=== PATIENT | male | born 1955 | race Caucasian/White ===

== ENCOUNTER 2018-05-05 01:17 | Inpatient (IN) | payer OTHER ==
[2018-05-05] MEDS ORDERED: SODIUM CHLORIDE 1,000 ML IV SCH (01:30)
[2018-05-05 01:35] LABS: HEMATOCRIT 35.9 % (35.4-49); HEMOGLOBIN 7.7 GM/dL (11.7-16.9); MCH 26.3 pg (25.7-33.7); MCHC 21.4 g/dl (32.0-35.9); MEAN CELL VOLUME 123.2 fl (80-96); MEAN PLT VOLUME 6.6 fl (7.5-11.1); PLATELET COUNT 130 K/MM3 (134-434); RBC 2.92 M/mm3 (4.00-5.60); RDW 16.4 % (11.9-15.9)
[2018-05-05] MEDS ORDERED: RAPID SEQUENCE INTUBATION KIT NR ONE (01:36)
[2018-05-05 01:46] LABS: INR 1.15 (0.82-1.09)
[2018-05-05] MEDS ORDERED: PROPOFOL 1,000,000 MCG/100 ML VIAL ONE ×2 (01:47→05:15)
--- NOTE | 2018-05-05 01:51 | PDOC ---
History of Present Illness <Jenaro Membreno - Last Filed: 05/05/18 02:25> - History of Present Illness Initial Comments: 05/05/18 01:55 "The patient is a 62 year old male, with a significant past medical history of anemia and ?lymphoma, who presents to the emergency department via EMS altered mental status. Per family, pt was in USOH at 12:20. Pt was noted to be awake, alert and with no deficits at this time. He then began to complain that he couldn't get comfortable. Suddenly, pt became rigid and began to slur his speech. Pt subsequently went unresponsive, and EMS was activated. As per EMS, the patient was incontinent and vomited upon their arrival. His blood glucose was 141. In ED, pt was exhibiting decerebrate posturing, unresponsive to painful stimuli. Pt with sonorous breath sounds, vomitus in airway. Pt intubated for airway protection with etomidate and cricket. CT obtained showing ICH. <Sanjiv Albarado - Last Filed: 05/05/18 03:44> - General Stated Complaint: CVA Time Seen by Provider: 05/05/18 01:21 Past History <Jenaro Membreno - Last Filed: 05/05/18 02:25> - Past Medical History COPD: No Other medical history: work up for lymphoma - Suicide/Smoking/Psychosocial Hx Smoking History: Unknown if ever smoked <Sanjiv Albarado - Last Filed: 05/05/18 03:44> - Past Medical History Allergies/Adverse Reactions: Allergies Allergy/AdvReac Type Severity Reaction Status Date / Time No Known Allergies Allergy Verified 05/05/18 02:09 Home Medications: Ambulatory Orders NK [No Known Home Medication] 05/05/18 Review of Systems - Review of Systems Able to Perform ROS?: No <Sanjiv Albarado - Last Filed: 05/05/18 03:44> *Physical Exam - Vital Signs Last Vital Signs Temp Pulse Resp BP Pulse Ox 97.5 F L 85 18 153/102 100 05/05/18 01:17 05/05/18 01:17 05/05/18 02:00 05/05/18 01:17 05/05/18 01:17 <Jenaro Membreno - Last Filed: 05/05/18 02:25> - Physical Exam Comments: 05/05/18 01:58 "GENERAL: Unresponsive HEAD: No signs of trauma EYES: PERRLA, sclera anicteric, conjunctiva clear ENT: Vomit in oropharynx NECK: no stepoffs, supple, no lymphadenopathy, JVD, or masses LUNGS: rhonchorous breath sounds HEART: Regular rate and rhythm, normal S1 and S2, no murmurs, rubs or gallops ABDOMEN: Soft, nondistended, No masses NEUROLOGICAL: + decerebrate posturing, no purposeful movement, no response to pain SKIN: Warm, Dry, normal turgor, no rashes or lesions noted. " <Sanjiv Albarado - Last Filed: 05/05/18 03:44> NIH Stroke Scale - Last Known Well Date/Time & Onset Date Last Known Well: 05/05/18 Time Last Known Well: 00:20 - Initial Evaluation Level of consciousness: Coma Ask patient the month and their age: Both incorrect Ask patient to open & close eyes; make fist and let go: Both incorrect Best gaze (horizontal eye movement): Forced deviation Visual field testing: Bilateral hemianopia (blind including cortical blindness) Facial paresis (Show teeth/raise eyebrows/close eyes tight): Complete paralysis of one or both sides (Upper and lower face) Motor Function: Left Arm: Untestable (Joint fused orlimb amputated), explain: Motor Function: Right Arm: Untestable (Joint fused or limb amputated), explain: Motor Function: Left Leg: Untestable (Joint fused or limb amputated), explain: Motor Function: Right Leg: Untestable )Joint fused orlimb amputated), explain: Limb Ataxia: Untestable (Joint fused or limb amputated), explain: Sensory(Use pinprick test arms,legs,trunk,face/side to side): Severe to total sensory loss Best language (Describe picture, name items, read sentences): Mute Dysarthria (read several words): Near unintelligible or unable to speak Extinction and Inattention: Profound austin-inattention or extinction to more than one modality - Total Score NIH Stroke Scale Score: 24 <Sanjiv Albarado - Last Filed: 05/05/18 03:44> Procedures - Intubation Time of Intubation: 01:45 Intubation Method: orotracheal Blade used: Glidescope Tube Size (Fr): 7.5 Medications: Etomidate, Rocuronium Tube position confirmed by: Direct visualization, CO2 detector, Chest x-ray, Breath sounds Breath Sounds after Intubation: equal Intubation Complications: no complications Post Intubation Xray: Yes <Sanjiv Albarado - Last Filed: 05/05/18 03:44> Critical Care Time/MDM Note Total Critical Care Time: 120 Critical Care Statement: The care of this patient involved high complexity decision making to prevent further life threatening deterioration of the patient 's condition and/or to evaluate & treat vital organ system(s) failure or risk of failure. - Medical Decision Making Note: 05/05/18 02:04 62 M with acute onset AMS. CT shows ICH. - Pt intubated for airway protection - HOB 30 degrees - Propofol gtt for sedation - Labetalol pushes PRN - Dr. Arriola neurosurgery consult 05/05/18 03:32 Dr. Arriola in ED to evaluate pt. Now discussing with pt's family recommendation for OR for drain placement. 05/05/18 03:40 Family consents to drain placement. Dr. Arriola to take pt to OR now. Pt to be admitted to ICU afterwards. 05/05/18 03:43 Pt admitted to hospitalist. <Sanjiv Albarado - Last Filed: 05/05/18 03:44> Discharge Disposition <Jenaro Membreno - Last Filed: 05/05/18 02:25> - Discharge Dispostion Decision to Admit order: Yes - Transfer to Acute Care Facility Transfer comment: 05/05/18 03:44 I, Dr. Sanjiv Albarado MD, attest that this document has been prepared under my direction and personally reviewed by me in its entirety. I further attest, that it accurately reflects all work, treatment, procedures and medical decision -making performed by me. <Sanjiv Albarado - Last Filed: 05/05/18 03:44> - Diagnosis ICH (intracerebral hemorrhage) - Referrals Referrals: Rosas Gu [Primary Care Provider] - - Patient Instructions - Post Discharge Activity Attestations - Attestations 05/05/18 02:25 Documentation prepared by Jenaro Membreno, acting as territory sales manager medical for Sanjiv Albarado MD. <Jenaro Membreno - Last Filed: 05/05/18 02:25>
[2018-05-05] MEDS ORDERED: ETOMIDATE 20 MG/10 ML AMPUL IVPUSH ONE (01:53)
[2018-05-05] MEDS ORDERED: ROCURONIUM BROMIDE 50 MG/5 ML VIAL IV ONE (01:53)
[2018-05-05 01:58] LABS: ALBUMIN 3.8 g/dl (3.4-5.0); ANION GAP 9 (8-16); BILIRUBIN,TOTAL 0.6 mg/dL (0.2-1.0); BLOOD UREA NITROGEN 20 mg/dL (7-18); CHLORIDE 104 mmol/L (98-107); CHOLESTEROL 152 mg/dL (50-200); CO2 25 mmol/L (21-32); CREATININE 0.9 mg/dL (0.7-1.3); GLUCOSE,RANDOM 122 mg/dL (74-106); POTASSIUM 4.4 mmol/L (3.5-5.1); SGOT/AST 44 U/L (15-37); SGPT/ALT 29 U/L (12-78); SODIUM 138 mmol/L (136-145); TRIGLYCERIDES 122 mg/dL (35-160)
[2018-05-05] MEDS ORDERED: PROPOFOL 1,000,000 MCG/100 ML VIAL IVPB SCH (02:00)
[2018-05-05 02:03] LABS: ALK PHOS 130 U/L (45-117); HDL CHOLESTEROL 24 mg/dL (40-60)
[2018-05-05] MEDS ORDERED: LABETALOL HCL 5 MG/1 ML (100MG/20 ML VIAL) IVPUSH ONE (02:22)
[2018-05-05] MEDS ORDERED: LABETALOL HCL 5 MG/1 ML (200MG/40ML VIAL) IVPB ONE (02:25)
[2018-05-05 02:39] LABS: ADD RBC MORPHOLOGY YES
[2018-05-05 03:41] LABS: ANISOCYTOSIS 1+
[2018-05-05] MEDS ORDERED: ceFAZolin SODIUM 1 GM VIAL ONE ×3 (04:02→19:01)
[2018-05-05] MEDS ORDERED: VANCOMYCIN 1,000 MG VIAL (RESTRICTED TO ID ONLY) ONE (04:02)
[2018-05-05] MEDS ORDERED: THROMBIN (BOVINE) 20,000 UNIT VIAL TP ONE ×2 (04:03→04:25)
[2018-05-05] MEDS ORDERED: VANCOMYCIN 1,000 MG VIAL (RESTRICTED TO ID ONLY) IVPB ONE (04:10)
[2018-05-05] MEDS ORDERED: ceFAZolin SODIUM 1 GM VIAL IVPB ONE (04:14)
[2018-05-05] MEDS ORDERED: PROPOFOL 1000 MG/100 ML VIAL IVPB ONE (05:20)
--- NOTE | 2018-05-05 05:25 | PROC ---
Procedure Note Procedure: Arterial Line Placement Indication: Hemodynamic monitoring Procedure: In OR, pt. under GA. Sterile prep with chlorhexidine to left wrist. Radial pulse palpated easily. #20 Arrow arterial line with attached glidewire. Catheter inserted easily via Seldinger technique, transduced with good waveform present on monitor. Dressing placed. No apparent complications.
[2018-05-05] MEDS ORDERED: PHENYLEPHRINE HCL 10 MG/1 ML SINGLE DOSE VIAL ONE ×2 (06:06→15:21)
[2018-05-05] MEDS ORDERED: LABETALOL HCL 5 MG/1 ML (100MG/20 ML VIAL) IVPUSH PRN (06:36)
--- NOTE | 2018-05-05 06:52 | HP ---
CHIEF COMPLAINT: Slurred speech, rigid posturing PCP: unknown Hx obtained from pt record; pt sedated and no family present at time for collateral; discussed case with Neurosurgeon, Dr. Castro HISTORY OF PRESENT ILLNESS: Pt is a 62 year old male, with a significant past medical history of anemia and ?lymphoma, who presents to the emergency department via EMS due to altered mental status. Per family, pt was in USOH at 12:20AM when he endorses abdominal discomfort and anxiety with inability to get comfortable. Pt received low dose xanax and was noted to suddenly experience slurring of speech, progressing to full body rigidity and unresponsiveness. EMS was activated by family and pt was taken to ED. Per EMS, patient was incontinent and vomited upon their arrival. His blood glucose was 141. Pt taken to OR by Dr. Modi for potential evacuation and surgical evaluation for hemostasis of ICH. Ventricular drain placed by Dr. Arriola. Pt draining freely SS fluids s/p drain placement, stable. Pt currently intubated, sedated with plan for CT scan to confirm placement with possible correction by neurosurgery. ER course was notable for: (1)Intubated for airway protection (2)CT head notable for ICH (3)WBC 399K Recent Travel: None PAST MEDICAL HISTORY: Leukemia (CML?) Anemia (unknown if chronic) PAST SURGICAL HISTORY: None Social History: Smoking: No Alcohol: No Drugs: No Family History: [place] Allergies No Known Allergies Allergy (Verified 05/05/18 02:09) HOME MEDICATIONS: Home Medications Medication Instructions Recorded NK [No Known Home Medication] 05/05/18 REVIEW OF SYSTEMS Unable to obtain, as pt sedated PHYSICAL EXAMINATION Vital Signs - 24 hr 05/05/18 05/05/18 05/05/18 01:17 02:00 02:53 Temperature 97.5 F L Pulse Rate 85 Pulse Rate [ 53 L Left Radial] Respiratory 12 18 18 Rate Blood Pressure 153/102 Blood Pressure 177/95 [Left Arm] O2 Sat by Pulse 100 100 Oximetry (%) GENERAL: Middle aged man, sedated, on vent HEAD: R intracranial drain noted on R lateral cranium, draining serosanguinous, proteinaceous fluid EYES: Pupils equal, round and reactive to light, sclera anicteric, conjunctiva clear. No lid lag. EARS, NOSE, THROAT: ETT in place, Ears normal, nares patent, oropharynx clear without exudates. Moist mucous membranes. NECK: Normal range of motion, supple without lymphadenopathy, JVD, or masses. LUNGS: Coarse breath sounds in upper airways. No wheezes, and no crackles. No accessory muscle use. HEART: Regular rate and rhythm, normal S1 and S2 without murmur, rub or gallop. ABDOMEN: Soft, nontender, not distended, normoactive bowel sounds, no guarding, no rebound, no masses. No hepatomegaly or splenomegaly. UPPER EXTREMITIES: 2+ pulses, warm, well-perfused. No cyanosis. No clubbing. No peripheral edema. LOWER EXTREMITIES: 2+ pulses, warm, well-perfused. No calf tenderness. No peripheral edema. NEUROLOGICAL: Limited due to sedation; no facial asymmetry; reactive pupils BL Laboratory Results - last 24 hr CBC, BMP 05/05/18 01:10 05/05/18 01:10 05/05/18 05/05/18 05/05/18 01:10 01:10 01:10 WBC > 398.9 H* RBC 2.92 L Hgb 7.7 L Hct 35.9 MCV 123.2 H MCH 26.3 MCHC 21.4 L RDW 16.4 H Plt Count 130 L MPV 6.6 L Absolute Neuts (auto) 169.7 Neutrophils % No Result Required. Lymphocytes % No Result Required. Nucleated RBC % 0 Hypochromia 1+ Anisocytosis 1+ PT with INR 13.00 INR 1.15 H Sodium 138 Potassium 4.4 Chloride 104 Carbon Dioxide 25 Anion Gap 9 BUN 20 H Creatinine 0.9 Creat Clearance w eGFR > 60 Random Glucose 122 H Calcium 9.0 Total Bilirubin 0.6 AST 44 H ALT 29 Alkaline Phosphatase 130 H Creatine Kinase 52 Troponin I < 0.02 Total Protein 7.0 Albumin 3.8 Triglycerides 122 Cholesterol 152 Total LDL Cholesterol 105 H HDL Cholesterol 24 L Blood Type Antibody Screen 05/05/18 01:10 WBC RBC Hgb Hct MCV MCH MCHC RDW Plt Count MPV Absolute Neuts (auto) Neutrophils % Lymphocytes % Nucleated RBC % Hypochromia Anisocytosis PT with INR INR Sodium Potassium Chloride Carbon Dioxide Anion Gap BUN Creatinine Creat Clearance w eGFR Random Glucose Calcium Total Bilirubin AST ALT Alkaline Phosphatase Creatine Kinase Troponin I Total Protein Albumin Triglycerides Cholesterol Total LDL Cholesterol HDL Cholesterol Blood Type A POSITIVE Antibody Screen Negative No micro CXR - S/p intubation; no pneumo appreciated CT Head - Gross evidence of ICH, likely originating from L caudate lobe ASSESSMENT/PLAN: 62 year old male, with a significant past medical history of anemia and ? leukemia, who presents to the emergency department via EMS due to altered mental status, now found to have a large ICH. Pt received drain placement by Dr. Arriola in OR emergently for evacuation of bleed and admitted to ICU. Will require continuous drainage, close monitoring of drain output and BP control, with eventual placement of LOSS PREVENTION REPRESENTATIVE shunt per Dr. Arriola (Neurosurgeon). #Acute ICH - pt POD0 s/p drain placement; currently on propofol gtt for sedation , freely draining SS fluid - Maintain IC drain with output collection q4h; Will require minimal manipulation, as very fragile and can dislodge/kink/clot off easily - Serial neuro exams qshift -NG tube placement for feeds - Propofol gtt for sedation; can taper progressively, however if pt agitated, maintain sedation level - Serial CBCs - Labetalol IV PRN for HTN; maintain BP <150 systolic - Neurosurgery following, Dr Arriola advising - Repeat CT head to confirm drain placement this AM - Heparin SQ for PPX - ICU monitoring - currently vented for O2 support; maintain currently - nutrition consult - Ancef q8h #Leukocytosis - WBC 399K; 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 Pickens - Will require continued outpt management - Obtain additional collateral from Oncologist #Hypotension - Pt hypotensive to 78/54 this AM - c/w neosyn gtt; titrate as needed - Cardiac monitoring - Vitals q1h for next 8 hours - monitor for further episodes - IVFs PPX HSQ FEN NS 42cc/hr Daily lytes No tube feeds for now; will require OG/NG tube and possible PEG Plan discussed with attending, Dr. Jameson Denney, PGY1 Visit type - Emergency Visit Emergency Visit: Yes ED Registration Date: 05/05/18 Care time: The patient presented to the Emergency Department on the above date and was hospitalized for further evaluation of their emergent condition. - New Patient This patient is new to me today: Yes Date on this admission: 05/05/18 - Critical Care Critical Care patient: No Hospitalist Screening - Colonoscopy Questionnaire Colonoscopy Questionnaire: Colonoscopy Questionnaire - Patient: 50 - 75 years old and never had a screening colonoscopy: Unknown History of colon or rectal polyps, or CA: Unknown History of IBD, Crohn's disease or UC: Unknown History of abdominal radiation therapy as a child: Unknown - Relative: 1 with colon or rectal CA, or polyps at age 60 or younger: Unknown Colon or rectal CA diagnosed at age 45 or younger: Unknown Multiple relatives with colon or rectal CA: Unknown - Outcome: Screening Result: Negative Screen
[2018-05-05] MEDS: PHENYLEPHRINE HCL 20,000 MCG in SODIUM CHLORIDE 248 ML IVPB SCH ×2 (07:00→15:33)
--- NOTE | 2018-05-05 07:07 | PN ---
Teaching Attending Note Name of Resident: Roberto Denney ATTENDING PHYSICIAN STATEMENT I saw and evaluated the patient. I reviewed the resident's note and discussed the case with the resident. I agree with the resident's findings and plan as documented. SUBJECTIVE: Patient is a 62 year old man with a significant past medical history of anemia and being evaluated for possible leukemia who presents to the emergency department via EMS altered mental status. Per family suddenly became rigid and began to slur his speech. Patient subsequently went unresponsive, and on arrival in the ER he was intubated. CT showed intracranial hemorrhage and he was take to the OR by neurosurgery and a drain placed. Patient is now in the ICU , ventilator dependent and sedated. OBJECTIVE: Ventilator dependent and sedated on propofol. Vital Signs Period Temp Pulse Resp BP Sys/Elmore Pulse Ox Last 24 Hr 97.5 F-99 F 53-86 12-19 81-177/56-102 99-100 HEENT: No Jaundice, eye redness or discharge, right side intracranial drain draining serosanguinous fluid. External ears are normal. No nasal discharge. Neck: Supple, nontender. No palpable adenopathy or thyromegaly. No JVD Chest: Good effort. Clear to auscultation and percussion. Heart: Regular. No S3, rub or murmur Abdomen: Not distended, soft, nontender and no HSM. No rebound or guarding. Normoactive bowel sounds. Ext: Peripheral pulses intact. No leg edema. Skin: Warm and dry. No petechiae, rash or ecchymosis. Neuro: Sedated on propofol and drain in place in right lateral cranium. Current Medications Generic Name Dose Route Start Last Admin Trade Name Edgarq PRN Reason Stop Dose Admin Chlorhexidine Gluconate 1 applic 05/05/18 22:00 Hibiclens For Decolonization - TP HS EDER Heparin Sodium (Porcine) 5,000 unit 05/05/18 06:45 Heparin - SQ TID EDER Sodium Chloride 1,000 mls @ 42 mls/hr 05/05/18 01:30 05/05/18 01:35 Normal Saline - IV 42 mls/hr ASDIR EDER Administration Propofol 1,000,000 mcg in 100 mls @ 2.041 mls/hr 05/05/18 02:00 05/05/18 01: 47 Diprivan - IVPB 5 mcg/kg/min TITR EDER 2.041 mls/hr Administration Protocol 5 MCG/KG/MIN Labetalol HCl 10 mg 05/05/18 06:36 Normodyne Injection - IVPUSH Q4H PRN HYPERTENSION Mupirocin 1 applic 05/05/18 10:00 Bactroban Ointment (For Decolonization) - NS 05/10/18 09:59 BID EDER Home Medications Medication Instructions Recorded NK [No Known Home Medication] 05/05/18 Abnormal Lab Results 05/05/18 05/05/18 05/05/18 01:10 01:10 01:10 WBC > 398.9 H* RBC 2.92 L Hgb 7.7 L MCV 123.2 H MCHC 21.4 L RDW 16.4 H Plt Count 130 L MPV 6.6 L INR 1.15 H BUN 20 H Random Glucose 122 H AST 44 H Alkaline Phosphatase 130 H Total LDL Cholesterol 105 H HDL Cholesterol 24 L ASSESSMENT AND PLAN: 1. Intracranial hemorrhage - Patient recovering from surgery for placement of intracranial drain. ICH likely a result of coagulopathy associated with possible leukemia. As per neurosurgery, SBP should be kept below 150 mmH with labetalol, a feeding tube will be placed, will monitor for EMPLOYMENT INTERVIEWER infection, and avoid any excessive patient movement to avoid dislodgment of the drain. A head CT scan is scheduled for 8 am to assess the position of the drain and will continue propofol for sedation. 2. Possible Leukemia - Will get oncology consult and get results of workup done so far at [facility]. 3. DVT prophylaxis - Heparin 5000u sq tid 4. Advance directives - Full code
[2018-05-05 07:12] VITALS: BMI 25.9
[2018-05-05 09:58] LABS: CHLORIDE 110 mmol/L (98-107); POTASSIUM 4.2 mmol/L (3.5-5.1); SGOT/AST 36 U/L (15-37); SGPT/ALT 30 U/L (12-78); SODIUM 144 mmol/L (136-145); TOT PROT 6.3 g/dl (6.4-8.2)
[2018-05-05] MEDS ORDERED: MUPIROCIN 2% TOPICAL OINTMENT FOR DECOLONIZATION NS SCH (10:00)
[2018-05-05 10:09] LABS: ALBUMIN 3.3 g/dl (3.4-5.0); ALK PHOS 111 U/L (45-117); ANION GAP 8 (8-16); BILIRUBIN,TOTAL 0.5 mg/dL (0.2-1.0); BLOOD UREA NITROGEN 18 mg/dL (7-18); CALCIUM 8.3 mg/dL (8.5-10.1); CO2 26 mmol/L (21-32); CREATININE 0.8 mg/dL (0.7-1.3); GLUCOSE,RANDOM 96 mg/dL (74-106); MAGNESIUM 2.6 mg/dL (1.8-2.4); PHOSPHOROUS 3.4 mg/dL (2.5-4.9); URIC ACID 8.7 mg/dL (2.6-7.2)
[2018-05-05 10:23] LABS: LDH 771 U/L (87-241)
--- NOTE | 2018-05-05 10:33 | EKG ---
Test Reason : Blood Pressure : / mmHG Vent. Rate : 079 BPM Atrial Rate : 079 BPM P-R Int : 176 ms QRS Dur : 084 ms QT Int : 394 ms P-R-T Axes : 071 061 065 degrees QTc Int : 451 ms POOR DATA QUALITY, INTERPRETATION MAY BE ADVERSELY AFFECTED NORMAL SINUS RHYTHM WITH SINUS ARRHYTHMIA NONSPECIFIC ST ABNORMALITY ABNORMAL ECG NO PREVIOUS ECGS AVAILABLE Confirmed by JESICA HENDRICKS, LUIS ([id number]) on 05/05/2018 10:33:47 AM Referred By: Confirmed By:LUIS MOONEY MD
[2018-05-05 10:35] LABS: INR 1.25 (0.82-1.09); PROTHROMBIN TIME (PATIENT) 14.1 SEC (9.7-13.0)
[2018-05-05 10:52] LABS: HEMATOCRIT 30.5 % (35.4-49); HEMOGLOBIN 7.1 GM/dL (11.7-16.9); MCH 27.1 pg (25.7-33.7); MCHC 23.3 g/dl (32.0-35.9); MEAN CELL VOLUME 116.5 fl (80-96); MEAN PLT VOLUME 11.7 fl (7.5-11.1); PLATELET COUNT 41 K/MM3 (134-434); RBC 2.61 M/mm3 (4.00-5.60); RDW 17.5 % (11.9-15.9)
[2018-05-05 10:55] LABS: ARTERIAL BLD GAS O2 SATURATION 90.3 % (90-98.9); ARTERIAL BLOOD GAS BASE EXCESS -0.2 meq/l (-2-2); ARTERIAL BLOOD GAS PCO2 40.5 mmHg (35-45); ARTERIAL BLOOD GAS pH 7.39 (7.35-7.45)
[2018-05-05] MEDS: HEPARIN NA (PORCINE) 5,000 UNITS/ML 1ML VIAL SQ SCH ×2 (10:57→15:41)
[2018-05-05 11:38] LABS: WHITE BLOOD COUNT 446.2 K/mm3 (4.0-10.0)
[2018-05-05 11:42] LABS: WHITE BLOOD COUNT 468.7 K/mm3 (4.0-10.0)
--- NOTE | 2018-05-05 11:57 | PN ---
Teaching Attending Note Name of Resident: Christiana Palumbo ATTENDING PHYSICIAN STATEMENT I saw and evaluated the patient. I reviewed the resident's note and discussed the case with the resident. I agree with the resident's findings and plan as documented. SUBJECTIVE: Pt seen and examined in the ICU. Briefly, 62 yo male with h/o anemia undergoing work up for possible leukemia as outpt who was brought in with altered mental status, slurred speech. CT head showing large intracranial hemorrhage taken emergently to the OR for ventricular drain placement. Seen post op in the ICU intubated on propofol gtt. Currently not breathing over vent with absent cranial reflexes. OBJECTIVE: Vital Signs Period Temp Pulse Resp BP Sys/Elmore Pulse Ox Last 24 Hr 97.5 F-99 F 53-86 12-21 78-177/54-102 99-100 Intake & Output 05/02/18 05/03/18 05/04/18 05/05/18 23:59 23:59 23:59 23:59 Intake Total 1000 Output Total 2464 Balance -1464 Weight 72.892 kg Gen: intubated, unresponsive Heart: RRR Lung: decreased breath sounds at the bases Abd: soft, nontender Ext: no edema Neuro: not breathing over vent, absent cranial reflexes CBC, BMP 05/05/18 08:50 05/05/18 08:50 Active Medications Chlorhexidine Gluconate (Hibiclens For Decolonization -) 1 applic TP HS EDER Heparin Sodium (Porcine) (Heparin -) 5,000 unit SQ TID EDER Last Admin: 05/05/18 10:57 Dose: 5,000 unit Sodium Chloride (Normal Saline -) 1,000 mls @ 42 mls/hr IV ASDIR EDER Last Admin: 05/05/18 01:35 Dose: 42 mls/hr Propofol (Diprivan -) 1,000,000 mcg in 100 mls @ 2.041 mls/hr IVPB TITR EDER; Protocol Last Titration: 05/05/18 07:00 Dose: 0 mcg/kg/min, 0 mls/hr Phenylephrine HCl 20,000 mcg/ (Sodium Chloride) 250 mls @ 75 mls/hr IVPB ASDIR EDER; Protocol Last Titration: 05/05/18 10:41 Dose: 25 mcg/min, 18.75 mls/hr Cefazolin Sodium (Ancef 1 Gm Premixed Ivpb -) 1 gm in 50 mls @ 100 mls/hr IVPB Q8H-IV EDER Labetalol HCl (Normodyne Injection -) 10 mg IVPUSH Q4H PRN PRN Reason: HYPERTENSION Mupirocin (Bactroban Ointment (For Decolonization) -) 1 applic NS BID EDER Stop: 05/10/18 09:59 Last Admin: 05/05/18 10:59 Dose: 1 applic ASSESSMENT AND PLAN: Intracranial Hemorrhage s/p ventricular drain placement Shock likely Neurogenic Likely Leukemia Anemia r/o Anoxic Encephalopathy r/o Diabetes Insipidus - check labs, urine osms, lytes - may need desmopressin - keep SBP <160 - monitor drain output - monitor H/H, WBC - heme/onc eval - titrate pressors - neuro checks - continue volume assist control - not a candidate for weaning at this time - DVT/GI prophylaxis - ICU monitoring - poor prognosis, discussed with family at bedside critical care time spent in reviewing chart, evaluating patient and formulating plan 35 min
[2018-05-05 12:42] LABS: ALLENS TEST POSITIVE
[2018-05-05] MEDS ORDERED: DEXTROSE 5%-WATER - 50 ML IVPB ONE ×2 (13:23→19:01)
[2018-05-05] MEDS: CEFAZOLIN 1 GM in DEXTROSE 5%-WATER - 50 ML IVPB SCH ×2 (13:24→19:02)
--- NOTE | 2018-05-05 13:54 | CONSULT ---
Consultation: REQUESTING PROVIDER: Dr. Juan CONSULT REQUEST: We have been asked to medically evaluate this patient for polyuria. HISTORY OF PRESENT ILLNESS: 62 year old male with recent diagnosis of Mantle cell lymphoma, BIBA after witnessed patient with slurred speech and subsequently unresponsive. In the ER head CT reveal ICH. neurosurgery consulted; patient s/p s/p ventricular drain placement. Called to evaluate patient for polyuria. After surgery urinary output of 2L. As per family, patient does not have any other medical history, except for recent mantle cell diagnosis. He takes aspirin 81mg daily and have been taking aleve 1 pill per day for the past week due to abdominal pain. REVIEW OF SYSTEMS: not attainable; intubated and sedated PHYSICAL EXAMINATION Vital Signs - 24 hr 05/05/18 05/05/18 05/05/18 01:17 02:00 02:53 Temperature 97.5 F L Pulse Rate 85 Pulse Rate [ 53 L Left Radial] Respiratory 12 18 18 Rate Blood Pressure 153/102 Blood Pressure 177/95 [Left Arm] O2 Sat by Pulse 100 100 Oximetry (%) 05/05/18 05/05/18 05/05/18 04:40 04:53 05:05 Temperature 99 F Pulse Rate 86 75 Pulse Rate [ Left Radial] Respiratory 18 18 19 Rate Blood Pressure 122/79 130/90 Blood Pressure [Left Arm] O2 Sat by Pulse 100 100 Oximetry (%) 05/05/18 05/05/18 05/05/18 05:20 05:35 05:50 Temperature Pulse Rate 75 74 74 Pulse Rate [ Left Radial] Respiratory 18 14 18 Rate Blood Pressure 137/87 110/75 90/64 Blood Pressure [Left Arm] O2 Sat by Pulse 100 100 100 Oximetry (%) 05/05/18 05/05/18 05/05/18 06:10 06:25 06:30 Temperature 99 F Pulse Rate 75 78 79 Pulse Rate [ Left Radial] Respiratory 16 19 18 Rate Blood Pressure 81/56 78/54 106/73 Blood Pressure [Left Arm] O2 Sat by Pulse 99 100 Oximetry (%) 05/05/18 05/05/18 05/05/18 06:45 07:00 07:20 Temperature 99 F Pulse Rate 78 78 Pulse Rate [ Left Radial] Respiratory 21 21 Rate Blood Pressure 134/86 138/76 Blood Pressure [Left Arm] O2 Sat by Pulse 100 Oximetry (%) 05/05/18 05/05/18 05/05/18 07:30 07:34 08:00 Temperature Pulse Rate 74 72 Pulse Rate [ Left Radial] Respiratory 20 18 18 Rate Blood Pressure 132/72 134/74 Blood Pressure [Left Arm] O2 Sat by Pulse 100 Oximetry (%) 05/05/18 05/05/18 05/05/18 09:00 09:12 10:00 Temperature Pulse Rate 78 75 78 Pulse Rate [ Left Radial] Respiratory 18 18 18 Rate Blood Pressure 124/74 143/78 Blood Pressure [Left Arm] O2 Sat by Pulse 100 Oximetry (%) 05/05/18 05/05/18 05/05/18 10:41 11:13 11:50 Temperature 98.5 F Pulse Rate 78 75 Pulse Rate [ Left Radial] Respiratory 18 Rate Blood Pressure 138/89 105/58 Blood Pressure [Left Arm] O2 Sat by Pulse 100 Oximetry (%) 05/05/18 05/05/18 05/05/18 12:00 12:22 13:00 Temperature Pulse Rate 74 75 Pulse Rate [ Left Radial] Respiratory 18 18 18 Rate Blood Pressure 108/76 113/77 Blood Pressure [Left Arm] O2 Sat by Pulse Oximetry (%) GENERAL: intubated and sedated LUNGS: Breath sounds equal, clear to auscultation bilaterally. No wheezes, and no crackles. No accessory muscle use. HEART: Regular rate and rhythm, normal S1 and S2 without murmur, rub or gallop. ABDOMEN: Soft, nontender, not distended, normoactive bowel sounds, no guarding, no rebound, no masses. No hepatomegaly or splenomegaly. NEUROLOGICAL: sedated Laboratory Results - last 24 hr 05/05/18 05/05/18 05/05/18 01:10 01:10 01:10 WBC 468.7 H* RBC 2.92 L Hgb 7.7 L Hct 35.9 MCV 123.2 H MCH 26.3 MCHC 21.4 L RDW 16.4 H Plt Count 130 L MPV 6.6 L Absolute Neuts (auto) 169.7 Neutrophils % No Result Required. Neutrophils % (Manual) No Result Required. Lymphocytes % No Result Required. Nucleated RBC % Eligibility Worker Differential Comment Hypochromia 1+ Platelet Comment Anisocytosis 1+ PT with INR 13.00 INR 1.15 H Puncture Site ABG pH ABG pCO2 at Pt Temp ABG pO2 at Pt Temp ABG HCO3 ABG O2 Sat (Measured) ABG O2 Content ABG Base Excess Eddie Test O2 Delivery Device Oxygen Flow Rate Vent Mode Vent Rate Mechanical Rate PEEP Pressure Support Vent Sodium 138 Potassium 4.4 Chloride 104 Carbon Dioxide 25 Anion Gap 9 BUN 20 H Creatinine 0.9 Creat Clearance w eGFR > 60 Random Glucose 122 H Lactic Acid Uric Acid Calcium 9.0 Phosphorus Magnesium Total Bilirubin 0.6 AST 44 H ALT 29 Alkaline Phosphatase 130 H LD Total Creatine Kinase 52 Troponin I < 0.02 Total Protein 7.0 Albumin 3.8 Triglycerides 122 Cholesterol 152 Total LDL Cholesterol 105 H HDL Cholesterol 24 L Urine Creatinine Blood Type Antibody Screen 05/05/18 05/05/18 05/05/18 01:10 08:50 08:50 WBC RBC Hgb Hct MCV MCH MCHC RDW Plt Count MPV Absolute Neuts (auto) Neutrophils % Neutrophils % (Manual) Lymphocytes % Nucleated RBC % Differential Comment Hypochromia Platelet Comment Anisocytosis PT with INR INR Puncture Site ABG pH ABG pCO2 at Pt Temp ABG pO2 at Pt Temp ABG HCO3 ABG O2 Sat (Measured) ABG O2 Content ABG Base Excess Eddie Test O2 Delivery Device Oxygen Flow Rate Vent Mode Vent Rate Mechanical Rate PEEP Pressure Support Vent Sodium 144 Potassium 4.2 Chloride 110 H Carbon Dioxide 26 Anion Gap 8 BUN 18 Creatinine 0.8 Creat Clearance w eGFR > 60 Random Glucose 96 D Lactic Acid 1.1 Uric Acid 8.7 H Calcium 8.3 L Phosphorus 3.4 Magnesium 2.6 H Total Bilirubin 0.5 AST 36 ALT 30 Alkaline Phosphatase 111 LD Total 771 H Creatine Kinase Troponin I Total Protein 6.3 L Albumin 3.3 L Triglycerides Cholesterol Total LDL Cholesterol HDL Cholesterol Urine Creatinine Blood Type A POSITIVE Antibody Screen Negative 05/05/18 05/05/18 05/05/18 08:50 08:50 10:00 WBC 446.2 H* RBC 2.61 L Hgb 7.1 L Hct 30.5 L D MCV 116.5 H MCH 27.1 MCHC 23.3 L RDW 17.5 H Plt Count 41 L D MPV 11.7 H D Absolute Neuts (auto) Neutrophils % No Result Required. Neutrophils % (Manual) Lymphocytes % No Result Required. Nucleated RBC % Differential Comment Hypochromia Platelet Comment No clumping noted Anisocytosis PT with INR 14.10 H INR 1.25 H Puncture Site ABG pH ABG pCO2 at Pt Temp ABG pO2 at Pt Temp ABG HCO3 ABG O2 Sat (Measured) ABG O2 Content ABG Base Excess Eddie Test O2 Delivery Device Oxygen Flow Rate Vent Mode Vent Rate Mechanical Rate PEEP Pressure Support Vent Sodium Potassium Chloride Carbon Dioxide Anion Gap BUN Creatinine Creat Clearance w eGFR Random Glucose Lactic Acid Uric Acid Cancelled Calcium Phosphorus Magnesium Total Bilirubin AST ALT Alkaline Phosphatase LD Total Cancelled Creatine Kinase Troponin I Total Protein Albumin Triglycerides Cholesterol Total LDL Cholesterol HDL Cholesterol Urine Creatinine Blood Type Antibody Screen 05/05/18 05/05/18 10:48 11:30 WBC RBC Hgb Hct MCV MCH MCHC RDW Plt Count MPV Absolute Neuts (auto) Neutrophils % Neutrophils % (Manual) Lymphocytes % Nucleated RBC % Differential Comment Hypochromia Platelet Comment Anisocytosis PT with INR INR Puncture Site Arterial line ABG pH 7.39 ABG pCO2 at Pt Temp 40.5 ABG pO2 at Pt Temp 60.0 L ABG HCO3 24.1 ABG O2 Sat (Measured) 90.3 ABG O2 Content 8.6 L* ABG Base Excess -0.2 Eddie Test Positive O2 Delivery Device Vent Oxygen Flow Rate 60% Vent Mode A/c Vent Rate 18 Mechanical Rate Yes PEEP 5.0 Pressure Support Vent 450 Sodium Potassium Chloride Carbon Dioxide Anion Gap BUN Creatinine Creat Clearance w eGFR Random Glucose Lactic Acid Uric Acid Calcium Phosphorus Magnesium Total Bilirubin AST ALT Alkaline Phosphatase LD Total Creatine Kinase Troponin I Total Protein Albumin Triglycerides Cholesterol Total LDL Cholesterol HDL Cholesterol Urine Creatinine 9.9 L Blood Type Antibody Screen Active Medications Generic Name Dose Route Start Last Admin Trade Name Freq PRN Reason Stop Dose Admin Chlorhexidine Gluconate 1 applic 05/05/18 22:00 Hibiclens For Decolonization - TP HS EDER Heparin Sodium (Porcine) 5,000 unit 05/05/18 06:45 05/05/18 10:57 Heparin - SQ 5,000 unit TID EDER Administration Sodium Chloride 1,000 mls @ 42 mls/hr 05/05/18 01:30 05/05/18 01:35 Normal Saline - IV 42 mls/hr ASDIR EDER Administration Propofol 1,000,000 mcg in 100 mls @ 2.041 mls/hr 05/05/18 02:00 05/05/18 07: 00 Diprivan - IVPB 0 mcg/kg/min TITR EDER 0 mls/hr Titration Protocol 5 MCG/KG/MIN Phenylephrine HCl 20,000 mcg/ 250 mls @ 75 mls/hr 05/05/18 08:00 05/05/18 10: 41 Sodium Chloride IVPB 25 mcg/min ASDIR DEER 18.75 mls/hr Titration Protocol 100 MCG/MIN Cefazolin Sodium 1 gm/ 50 mls @ 100 mls/hr 05/05/18 12:00 05/05/18 13:24 Dextrose IVPB 100 mls/hr Q8H-IV EDER Administration Labetalol HCl 10 mg 05/05/18 06:36 Normodyne Injection - IVPUSH Q4H PRN HYPERTENSION Mupirocin 1 applic 05/05/18 10:00 05/05/18 10:59 Bactroban Ointment (For Decolonization) - NS 05/10/18 09:59 1 applic BID EDER Administration ASSESSMENT/PLAN: 62 year old male with recent diagnosis of mantle cell lymphoma, admitted for ICH now s/p ventricular drain placement was became polyurica after procedure. -Polyuria -Intracranial Hemorrhage s/p ventricular drain placement -Anemia -mantle cell lymphoma -shock #polyuria; r/o diabetes insipidus: -monitor urine out put for >3L per day -check urine and serum osmols -monitor for hypernatremia with urine osmols > plasma osmols -IVF; 1/2 NS ; -consider ddavp if becomes hypernatremic Dispo: We will continue to follow the patient. Thank you for this consultative opportunity. Problem List - Problems (1) Polyuria Code(s): R35.8 - OTHER POLYURIA Visit type - Emergency Visit Emergency Visit: Yes ED Registration Date: 05/05/18 Care time: The patient presented to the Emergency Department on the above date and was hospitalized for further evaluation of their emergent condition. - New Patient This patient is new to me today: Yes Date on this admission: 05/05/18 - Critical Care Critical Care patient: Yes Total Critical Care Time (in minutes): 45 Critical Care Statement: The care of this patient involved high complexity decision making to prevent further life threatening deterioration of the patient 's condition and/or to evaluate & treat vital organ system(s) failure or risk of failure.
--- NOTE | 2018-05-05 13:59 | CONSULT ---
Consult - text type - Consultation Consultation Note: NEUROSURGERY CONSULTATION Lewis Greco is a 62 year old male who was in his usual state of good health until 3 weeks ago when he noted abdominal pain. Evaluation by his PCP resulted in diagnosis of splenomegally. Evaluation with basic labs resulted in identification of WBC of 300,000. Patient undergoing evaluation by Oncologist at [facility] for Leukemia/Lymphoma and was due to visit his Oncologist today for results of recent testing. At approximately 0030 this morning, the patient was trying to get comfortable in bed and complained to his about his abdomen. He suddenly became stiff and unresponsive and EMS was summoned. Patient vomited and was brought to [facility] ER. The patient was decerebrate posturing and was intubated and sedated. His systolic blood pressure was 170 and he was given Labetolol. CT Head reveals a 3 cm Intracerebral Hemorrhage in the region of the head of the Left Caudate nucleus and this ruptured into the Left frontal horn and there is quadriventricular IVH. A small amount of prepontine blood is noted with no obvious subarachnoid hemorrhage. Although this likely was a hemorrhage secondary to coagulopathy secondary to his Lymphoma/Leukemia, the possibilty of ruptured aneursym (? Basilar Lajas) was a concern. Prior to placing an external ventricular drain to address his hydrocephalus, we obtained a CTA which was preliminarily read as negative for aneurysm. I had a long discussion with the family regarding the nature of the ICH/IVH and associated hydrocephalus. I explained the risks, benefits and alternatives to Right frontal external ventricular drainage in great detail. I described the risks including, but not being limited to: , coma, paralysis, bleeding, infection, obstruction of the tubing and failure to relieve the hydrocephalus or stop the bleeding. I explained that external ventricular drainage would allow relief of pressure and removal of blood breakdown products. I described that we do not know what injury his brain may have suffered already, but the time from initial onset to evaluation in the ER was quite short and since he had preserved morton white distinction and no clear devastating and permanent brain injury, EVD would be the next logical step in his care. I explained that he did not appear to be coagulopathic in terms of hematomata at the blood draw site and lack of bruising with relatively normal clotting profile, however, since he had such a hemorrhage, abnormal bleeding remains a concern and potential challenge to surgery. I explained that there is a risk of infection as well and also described the need to reposition a suboptimally placed catheter or one that clots off. I explained that prolonged CSF diversion may require placement of a Ventriculoperitoneal shunt or new EVD if blood hasn't cleared in 1-2 weeks. All questions were answered. Informed consent was obtained. I offered them the option of seeking another opinion or another surgeon. Indeed, I had a layla discussion with them concerning the relative merits of transfer to a higher level of care and offered to facilitate in any way possible if the family so chose. After giving them time to confer privately , they asked that I proceed with surgery as described. The EVD was placed uneventfully and the patient was brought to the ICU. When he was noted to have fixed and dilated pupils several hours later, repeat Head CT was obtained which showed that the ICH was the same size and the catheter lay within the Right frontal horn. I discussed the serious nature of the patient's condition with the family in detail and again offered support in transferring him to a higher level of care if desired. At the current time the plan is: Blood pressure contol Follow Neuro Exam GI/DVT prophylaxis HOB 30 degrees Drain EVD at 10cm above pinna and record output Q4 hours (demonstrated to nursing and residents) Oncology Consult Will consider nutrition needs Ancef prophylaxis Will follow with ICU team
--- NOTE | 2018-05-05 14:03 | HOSP ---
Subjective - Review of Symptoms Subjective: pt seen and examined in icu. pt sedated and intubated. family at bedside Physical Examination Vital Signs: Vital Signs Temperature 98.5 F 05/05/18 11:13 Pulse Rate 75 05/05/18 13:00 Respiratory Rate 18 05/05/18 13:00 Blood Pressure 113/77 05/05/18 13:00 O2 Sat by Pulse Oximetry (%) 100 05/05/18 11:50 Findings/Remarks: PE Neuro: absent crainal reflex, fixed dilated pupils, absent gag reflex, shunt in place + drainage Pulm: intubated, clear no secretions CV: s1 s2 rrr Abd: s nt nd Ext: no le edema Labs: CBC, BMP 05/05/18 08:50 05/05/18 08:50 Hospitalist Encounter Assessment: Assessment: 62 year old male with pmhx of anemia and current work up for possible leukemia presented via ems for AMS and unresponsiveness. In ED was intubated and found to have ICH, taken to OR for shut placement now in ICU. Plan: 1. ICH s/p ventricular drain placement, anoxic encephalopathy - Possible due to leukemia? vs anemia - Maintain drain, monitor outpt per neuro surgery - keep intubated, volume assist control - SBP goal <150 - Consider NGT 2. Thrombocytopenia d/t lymphoma vs leukemia - r/o DIC - Transfuse 2u packed cells and 3uplatelets, additional platelets being sent from outside center - Will eventually need transfer to [place], will need neurosurgery clearance - d/w hematology 3. r/o DI - Urine studies sent - Nephrology aware - May need desmopressin 4. DVT - Heparin per neurosurgery Dispo: - Prognosis guarded, family at beside
--- NOTE | 2018-05-05 14:03 | PN ---
Physical Exam: SUBJECTIVE: Patient seen and examined OBJECTIVE: Vital Signs Period Temp Pulse Resp BP Sys/Elmore Pulse Ox Last 24 Hr 97.5 F-99 F 53-86 12-21 78-177/54-102 98-100 GENERAL: The patient is awake, alert, and fully oriented, in no acute distress. HEAD: Normal with no signs of trauma. EYES: PERRL, extraocular movements intact, sclera anicteric, conjunctiva clear. No ptosis. ENT: Ears normal, nares patent, oropharynx clear without exudates, moist mucous membranes. NECK: Trachea midline, full range of motion, supple. LUNGS: Breath sounds equal, clear to auscultation bilaterally, no wheezes, no crackles, no accessory muscle use. HEART: Regular rate and rhythm, S1, S2 without murmur, rub or gallop. ABDOMEN: Soft, nontender, nondistended, normoactive bowel sounds, no guarding, no rebound, no hepatosplenomegaly, no masses. EXTREMITIES: 2+ pulses, warm, well-perfused, no edema. NEUROLOGICAL: Cranial nerves II through XII grossly intact. Normal speech, gait not observed. PSYCH: Normal mood, normal affect. SKIN: Warm, dry, normal turgor, no rashes or lesions noted Laboratory Results - last 24 hr 05/05/18 05/05/18 05/05/18 01:10 01:10 01:10 WBC 468.7 H* RBC 2.92 L Hgb 7.7 L Hct 35.9 MCV 123.2 H MCH 26.3 MCHC 21.4 L RDW 16.4 H Plt Count 130 L MPV 6.6 L Absolute Neuts (auto) 169.7 Neutrophils % No Result Required. Neutrophils % (Manual) No Result Required. Lymphocytes % No Result Required. Nucleated RBC % Sole Tier Differential Comment Hypochromia 1+ Platelet Comment Anisocytosis 1+ PT with INR 13.00 INR 1.15 H Puncture Site ABG pH ABG pCO2 at Pt Temp ABG pO2 at Pt Temp ABG HCO3 ABG O2 Sat (Measured) ABG O2 Content ABG Base Excess Eddie Test O2 Delivery Device Oxygen Flow Rate Vent Mode Vent Rate Mechanical Rate PEEP Pressure Support Vent Sodium 138 Potassium 4.4 Chloride 104 Carbon Dioxide 25 Anion Gap 9 BUN 20 H Creatinine 0.9 Creat Clearance w eGFR > 60 Random Glucose 122 H Lactic Acid Uric Acid Calcium 9.0 Phosphorus Magnesium Total Bilirubin 0.6 AST 44 H ALT 29 Alkaline Phosphatase 130 H LD Total Creatine Kinase 52 Troponin I < 0.02 Total Protein 7.0 Albumin 3.8 Triglycerides 122 Cholesterol 152 Total LDL Cholesterol 105 H HDL Cholesterol 24 L Urine Creatinine Blood Type Antibody Screen 05/05/18 05/05/18 05/05/18 01:10 08:50 08:50 WBC RBC Hgb Hct MCV MCH MCHC RDW Plt Count MPV Absolute Neuts (auto) Neutrophils % Neutrophils % (Manual) Lymphocytes % Nucleated RBC % Differential Comment Hypochromia Platelet Comment Anisocytosis PT with INR INR Puncture Site ABG pH ABG pCO2 at Pt Temp ABG pO2 at Pt Temp ABG HCO3 ABG O2 Sat (Measured) ABG O2 Content ABG Base Excess Eddie Test O2 Delivery Device Oxygen Flow Rate Vent Mode Vent Rate Mechanical Rate PEEP Pressure Support Vent Sodium 144 Potassium 4.2 Chloride 110 H Carbon Dioxide 26 Anion Gap 8 BUN 18 Creatinine 0.8 Creat Clearance w eGFR > 60 Random Glucose 96 D Lactic Acid 1.1 Uric Acid 8.7 H Calcium 8.3 L Phosphorus 3.4 Magnesium 2.6 H Total Bilirubin 0.5 AST 36 ALT 30 Alkaline Phosphatase 111 LD Total 771 H Creatine Kinase Troponin I Total Protein 6.3 L Albumin 3.3 L Triglycerides Cholesterol Total LDL Cholesterol HDL Cholesterol Urine Creatinine Blood Type A POSITIVE Antibody Screen Negative 05/05/18 05/05/18 05/05/18 08:50 08:50 10:00 WBC 446.2 H* RBC 2.61 L Hgb 7.1 L Hct 30.5 L D MCV 116.5 H MCH 27.1 MCHC 23.3 L RDW 17.5 H Plt Count 41 L D MPV 11.7 H D Absolute Neuts (auto) Neutrophils % No Result Required. Neutrophils % (Manual) Lymphocytes % No Result Required. Nucleated RBC % Differential Comment Hypochromia Platelet Comment No clumping noted Anisocytosis PT with INR 14.10 H INR 1.25 H Puncture Site ABG pH ABG pCO2 at Pt Temp ABG pO2 at Pt Temp ABG HCO3 ABG O2 Sat (Measured) ABG O2 Content ABG Base Excess Eddie Test O2 Delivery Device Oxygen Flow Rate Vent Mode Vent Rate Mechanical Rate PEEP Pressure Support Vent Sodium Potassium Chloride Carbon Dioxide Anion Gap BUN Creatinine Creat Clearance w eGFR Random Glucose Lactic Acid Uric Acid Cancelled Calcium Phosphorus Magnesium Total Bilirubin AST ALT Alkaline Phosphatase LD Total Cancelled Creatine Kinase Troponin I Total Protein Albumin Triglycerides Cholesterol Total LDL Cholesterol HDL Cholesterol Urine Creatinine Blood Type Antibody Screen 05/05/18 05/05/18 10:48 11:30 WBC RBC Hgb Hct MCV MCH MCHC RDW Plt Count MPV Absolute Neuts (auto) Neutrophils % Neutrophils % (Manual) Lymphocytes % Nucleated RBC % Differential Comment Hypochromia Platelet Comment Anisocytosis PT with INR INR Puncture Site Arterial line ABG pH 7.39 ABG pCO2 at Pt Temp 40.5 ABG pO2 at Pt Temp 60.0 L ABG HCO3 24.1 ABG O2 Sat (Measured) 90.3 ABG O2 Content 8.6 L* ABG Base Excess -0.2 Eddie Test Positive O2 Delivery Device Vent Oxygen Flow Rate 60% Vent Mode A/c Vent Rate 18 Mechanical Rate Yes PEEP 5.0 Pressure Support Vent 450 Sodium Potassium Chloride Carbon Dioxide Anion Gap BUN Creatinine Creat Clearance w eGFR Random Glucose Lactic Acid Uric Acid Calcium Phosphorus Magnesium Total Bilirubin AST ALT Alkaline Phosphatase LD Total Creatine Kinase Troponin I Total Protein Albumin Triglycerides Cholesterol Total LDL Cholesterol HDL Cholesterol Urine Creatinine 9.9 L Blood Type Antibody Screen Active Medications Generic Name Dose Route Start Last Admin Trade Name Freq PRN Reason Stop Dose Admin Chlorhexidine Gluconate 1 applic 05/05/18 22:00 Hibiclens For Decolonization - TP HS EDER Heparin Sodium (Porcine) 5,000 unit 05/05/18 06:45 05/05/18 10:57 Heparin - SQ 5,000 unit TID EDER Administration Sodium Chloride 1,000 mls @ 42 mls/hr 05/05/18 01:30 05/05/18 01:35 Normal Saline - IV 42 mls/hr ASDIR EDER Administration Propofol 1,000,000 mcg in 100 mls @ 2.041 mls/hr 05/05/18 02:00 05/05/18 07: 00 Diprivan - IVPB 0 mcg/kg/min TITR EDER 0 mls/hr Titration Protocol 5 MCG/KG/MIN Phenylephrine HCl 20,000 mcg/ 250 mls @ 75 mls/hr 05/05/18 08:00 05/05/18 10: 41 Sodium Chloride IVPB 25 mcg/min ASDIR EDER 18.75 mls/hr Titration Protocol 100 MCG/MIN Cefazolin Sodium 1 gm/ 50 mls @ 100 mls/hr 05/05/18 12:00 05/05/18 13:24 Dextrose IVPB 100 mls/hr Q8H-IV EDER Administration Labetalol HCl 10 mg 05/05/18 06:36 Normodyne Injection - IVPUSH Q4H PRN HYPERTENSION Mupirocin 1 applic 05/05/18 10:00 05/05/18 10:59 Bactroban Ointment (For Decolonization) - NS 05/10/18 09:59 1 applic BID EDER Administration Intracranial Hemorrhage s/p ventricular drain placement Shock likely Neurogenic Likely Leukemia Anemia r/o Anoxic Encephalopathy r/o Diabetes Insipidus - check labs, urine osms, lytes - may need desmopressin - keep SBP <160 - monitor drain output - monitor H/H, WBC - heme/onc eval - titrate pressors - neuro checks - continue volume assist control - not a candidate for weaning at this time - DVT/GI prophylaxis - ICU monitoring - poor prognosis, discussed with family at bedside
--- NOTE | 2018-05-05 14:04 | CONSULT ---
Consultation: HISTORY OF PRESENT ILLNESS: Pt is a 62 year old male, with a significant past medical history of anemia andbeing worked up for possible leukemia outpatien, presented to the emergency department via EMS altered mental status. Patient started complaining about being uncomfortable. Suddenly, began to slur his speech. Pt subsequently went unresponsive, and EMS was activated. As per EMS, the patient was incontinent and vomited upon their arrival. Patient was taken to the OR by dr. Ramirez for intracranial drain placement. Head CT: Large acute hemorrhage in L frontal lobe with marked dilatation of the ventricles. Pt currently intubated, sedated on propofol. R A-line in place. Currently not breathing over vent with absent cranial reflexes. REVIEW OF SYSTEMS: unable to obtain PHYSICAL EXAMINATION Vital Signs - 24 hr 05/05/18 05/05/18 05/05/18 01:17 02:00 02:53 Temperature 97.5 F L Pulse Rate 85 Pulse Rate [ 53 L Left Radial] Respiratory 12 18 18 Rate Blood Pressure 153/102 Blood Pressure 177/95 [Left Arm] O2 Sat by Pulse 100 100 Oximetry (%) 05/05/18 05/05/18 05/05/18 04:40 04:53 05:05 Temperature 99 F Pulse Rate 86 75 Pulse Rate [ Left Radial] Respiratory 18 18 19 Rate Blood Pressure 122/79 130/90 Blood Pressure [Left Arm] O2 Sat by Pulse 100 100 Oximetry (%) 05/05/18 05/05/18 05/05/18 05:20 05:35 05:50 Temperature Pulse Rate 75 74 74 Pulse Rate [ Left Radial] Respiratory 18 14 18 Rate Blood Pressure 137/87 110/75 90/64 Blood Pressure [Left Arm] O2 Sat by Pulse 100 100 100 Oximetry (%) 05/05/18 05/05/18 05/05/18 06:10 06:25 06:30 Temperature 99 F Pulse Rate 75 78 79 Pulse Rate [ Left Radial] Respiratory 16 19 18 Rate Blood Pressure 81/56 78/54 106/73 Blood Pressure [Left Arm] O2 Sat by Pulse 99 100 Oximetry (%) 05/05/18 05/05/18 05/05/18 06:45 07:00 07:20 Temperature 99 F Pulse Rate 78 78 Pulse Rate [ Left Radial] Respiratory 21 21 Rate Blood Pressure 134/86 138/76 Blood Pressure [Left Arm] O2 Sat by Pulse 100 Oximetry (%) 05/05/18 05/05/18 05/05/18 07:30 07:34 08:00 Temperature Pulse Rate 74 72 Pulse Rate [ Left Radial] Respiratory 20 18 18 Rate Blood Pressure 132/72 134/74 Blood Pressure [Left Arm] O2 Sat by Pulse 100 Oximetry (%) 05/05/18 05/05/18 05/05/18 09:00 09:12 10:00 Temperature Pulse Rate 78 75 78 Pulse Rate [ Left Radial] Respiratory 18 18 18 Rate Blood Pressure 124/74 143/78 Blood Pressure [Left Arm] O2 Sat by Pulse 100 Oximetry (%) 05/05/18 05/05/18 05/05/18 10:41 11:13 11:50 Temperature 98.5 F Pulse Rate 78 75 Pulse Rate [ Left Radial] Respiratory 18 Rate Blood Pressure 138/89 105/58 Blood Pressure [Left Arm] O2 Sat by Pulse 100 Oximetry (%) 05/05/18 05/05/18 05/05/18 12:00 12:22 13:00 Temperature Pulse Rate 74 75 Pulse Rate [ Left Radial] Respiratory 18 18 18 Rate Blood Pressure 108/76 113/77 Blood Pressure [Left Arm] O2 Sat by Pulse Oximetry (%) GENERAL: intubated and sedated HEAD: Normal with no signs of trauma. EYES: fixed and dilated pupils 8mm EARS, NOSE, THROAT: oropharynx clear without exudates. dry mucous membranes LUNGS: rhonchorous breath sounds HEART: Regular rate and rhythm, normal S1 and S2 without murmur, rub or gallop. ABDOMEN: Nondistended, no grimacing to palpation. +BS UPPER EXTREMITIES: 2+ pulses, No peripheral edema. LOWER EXTREMITIES: 2+ pulses, No peripheral edema. NEUROLOGICAL: no pupillary reflexes, no gag reflex Laboratory Results - last 24 hr 05/05/18 05/05/18 05/05/18 01:10 01:10 01:10 WBC 468.7 H* RBC 2.92 L Hgb 7.7 L Hct 35.9 MCV 123.2 H MCH 26.3 MCHC 21.4 L RDW 16.4 H Plt Count 130 L MPV 6.6 L Absolute Neuts (auto) 169.7 Neutrophils % No Result Required. Neutrophils % (Manual) No Result Required. Lymphocytes % No Result Required. Nucleated RBC % [employer] Worker Differential Comment Hypochromia 1+ Platelet Comment Anisocytosis 1+ PT with INR 13.00 INR 1.15 H Puncture Site ABG pH ABG pCO2 at Pt Temp ABG pO2 at Pt Temp ABG HCO3 ABG O2 Sat (Measured) ABG O2 Content ABG Base Excess Eddie Test O2 Delivery Device Oxygen Flow Rate Vent Mode Vent Rate Mechanical Rate PEEP Pressure Support Vent Sodium 138 Potassium 4.4 Chloride 104 Carbon Dioxide 25 Anion Gap 9 BUN 20 H Creatinine 0.9 Creat Clearance w eGFR > 60 Random Glucose 122 H Lactic Acid Uric Acid Calcium 9.0 Phosphorus Magnesium Total Bilirubin 0.6 AST 44 H ALT 29 Alkaline Phosphatase 130 H LD Total Creatine Kinase 52 Troponin I < 0.02 Total Protein 7.0 Albumin 3.8 Triglycerides 122 Cholesterol 152 Total LDL Cholesterol 105 H HDL Cholesterol 24 L Urine Creatinine Blood Type Antibody Screen 05/05/18 05/05/18 05/05/18 01:10 08:50 08:50 WBC RBC Hgb Hct MCV MCH MCHC RDW Plt Count MPV Absolute Neuts (auto) Neutrophils % Neutrophils % (Manual) Lymphocytes % Nucleated RBC % Differential Comment Hypochromia Platelet Comment Anisocytosis PT with INR INR Puncture Site ABG pH ABG pCO2 at Pt Temp ABG pO2 at Pt Temp ABG HCO3 ABG O2 Sat (Measured) ABG O2 Content ABG Base Excess Eddie Test O2 Delivery Device Oxygen Flow Rate Vent Mode Vent Rate Mechanical Rate PEEP Pressure Support Vent Sodium 144 Potassium 4.2 Chloride 110 H Carbon Dioxide 26 Anion Gap 8 BUN 18 Creatinine 0.8 Creat Clearance w eGFR > 60 Random Glucose 96 D Lactic Acid 1.1 Uric Acid 8.7 H Calcium 8.3 L Phosphorus 3.4 Magnesium 2.6 H Total Bilirubin 0.5 AST 36 ALT 30 Alkaline Phosphatase 111 LD Total 771 H Creatine Kinase Troponin I Total Protein 6.3 L Albumin 3.3 L Triglycerides Cholesterol Total LDL Cholesterol HDL Cholesterol Urine Creatinine Blood Type A POSITIVE Antibody Screen Negative 05/05/18 05/05/18 05/05/18 08:50 08:50 10:00 WBC 446.2 H* RBC 2.61 L Hgb 7.1 L Hct 30.5 L D MCV 116.5 H MCH 27.1 MCHC 23.3 L RDW 17.5 H Plt Count 41 L D MPV 11.7 H D Absolute Neuts (auto) Neutrophils % No Result Required. Neutrophils % (Manual) Lymphocytes % No Result Required. Nucleated RBC % Differential Comment Hypochromia Platelet Comment No clumping noted Anisocytosis PT with INR 14.10 H INR 1.25 H Puncture Site ABG pH ABG pCO2 at Pt Temp ABG pO2 at Pt Temp ABG HCO3 ABG O2 Sat (Measured) ABG O2 Content ABG Base Excess Eddie Test O2 Delivery Device Oxygen Flow Rate Vent Mode Vent Rate Mechanical Rate PEEP Pressure Support Vent Sodium Potassium Chloride Carbon Dioxide Anion Gap BUN Creatinine Creat Clearance w eGFR Random Glucose Lactic Acid Uric Acid Cancelled Calcium Phosphorus Magnesium Total Bilirubin AST ALT Alkaline Phosphatase LD Total Cancelled Creatine Kinase Troponin I Total Protein Albumin Triglycerides Cholesterol Total LDL Cholesterol HDL Cholesterol Urine Creatinine Blood Type Antibody Screen 05/05/18 05/05/18 10:48 11:30 WBC RBC Hgb Hct MCV MCH MCHC RDW Plt Count MPV Absolute Neuts (auto) Neutrophils % Neutrophils % (Manual) Lymphocytes % Nucleated RBC % Differential Comment Hypochromia Platelet Comment Anisocytosis PT with INR INR Puncture Site Arterial line ABG pH 7.39 ABG pCO2 at Pt Temp 40.5 ABG pO2 at Pt Temp 60.0 L ABG HCO3 24.1 ABG O2 Sat (Measured) 90.3 ABG O2 Content 8.6 L* ABG Base Excess -0.2 Eddie Test Positive O2 Delivery Device Vent Oxygen Flow Rate 60% Vent Mode A/c Vent Rate 18 Mechanical Rate Yes PEEP 5.0 Pressure Support Vent 450 Sodium Potassium Chloride Carbon Dioxide Anion Gap BUN Creatinine Creat Clearance w eGFR Random Glucose Lactic Acid Uric Acid Calcium Phosphorus Magnesium Total Bilirubin AST ALT Alkaline Phosphatase LD Total Creatine Kinase Troponin I Total Protein Albumin Triglycerides Cholesterol Total LDL Cholesterol HDL Cholesterol Urine Creatinine 9.9 L Blood Type Antibody Screen Active Medications Generic Name Dose Route Start Last Admin Trade Name Freq PRN Reason Stop Dose Admin Chlorhexidine Gluconate 1 applic 05/05/18 22:00 Hibiclens For Decolonization - TP HS EDER Heparin Sodium (Porcine) 5,000 unit 05/05/18 06:45 05/05/18 10:57 Heparin - SQ 5,000 unit TID EDER Administration Sodium Chloride 1,000 mls @ 42 mls/hr 05/05/18 01:30 05/05/18 01:35 Normal Saline - IV 42 mls/hr ASDIR EDER Administration Propofol 1,000,000 mcg in 100 mls @ 2.041 mls/hr 05/05/18 02:00 05/05/18 07: 00 Diprivan - IVPB 0 mcg/kg/min TITR EDER 0 mls/hr Titration Protocol 5 MCG/KG/MIN Phenylephrine HCl 20,000 mcg/ 250 mls @ 75 mls/hr 05/05/18 08:00 05/05/18 10: 41 Sodium Chloride IVPB 25 mcg/min ASDIR EDER 18.75 mls/hr Titration Protocol 100 MCG/MIN Cefazolin Sodium 1 gm/ 50 mls @ 100 mls/hr 05/05/18 12:00 05/05/18 13:24 Dextrose IVPB 100 mls/hr Q8H-IV EDER Administration Labetalol HCl 10 mg 05/05/18 06:36 Normodyne Injection - IVPUSH Q4H PRN HYPERTENSION Mupirocin 1 applic 05/05/18 10:00 05/05/18 10:59 Bactroban Ointment (For Decolonization) - NS 05/10/18 09:59 1 applic BID EDER Administration ASSESSMENT/PLAN: Neuro -Intracranial Hemorrhage s/p ventricular drain placement -Head CT: Large acute hemorrhage in L frontal lobe with marked dilatation of the ventricles. -FU neuro reccs: Dr. Ramirez -s/p drain placement -monitor drain output -Repeat CT with no change -Head and neck CTA noted -neuro checks q1h CV -Shock likely neurogenic -Phenylephrine -titrate pressors -keep SBP <160 PULM -cont. volume assist control -not a candidate for weaning at this time HEME/ONC -hx of newly diagnosed Leukemia -WBC 446 -heme/onc on board -follow up reccs -possible leukapharesis as per heme/onc -Flow cytometry -monitor h&H, wbc -r/o diabetes insipidus- patient with large output. -urine studies sent. FEN -NS @ 42 -monitor lytes -NPO Dispo Poor prognosis Consider ICU monitoring at this time Dispo: We will continue to follow the patient. Thank you for this consultative opportunity. Visit type - Emergency Visit Emergency Visit: Yes ED Registration Date: 05/05/18 Care time: The patient presented to the Emergency Department on the above date and was hospitalized for further evaluation of their emergent condition. - New Patient This patient is new to me today: Yes Date on this admission: 05/05/18 - Critical Care Critical Care patient: Yes Total Critical Care Time (in minutes): 45 Critical Care Statement: The care of this patient involved high complexity decision making to prevent further life threatening deterioration of the patient 's condition and/or to evaluate & treat vital organ system(s) failure or risk of failure.
--- NOTE | 2018-05-05 15:26 | CONSULT ---
Consult - text type - Consultation Consultation Note: Renal Consult for suspected Central DI This is a 62 year old gentleman with recent diagnosis of Mantle Cell lymphoma who presented with slurred speech and found to have ICH with subsequent evacuation by neurosuergery with polyuria. Pt is currently in the ICU on Vent. BP stable. On low rate isotonic saline. Making ~3L of urine over 12 hours. PMhx: as above Allergies: NKDA Family Hx: NC ROS: unable to obtain because of clinical status Home Medications Medication Instructions Recorded NK [No Known Home Medication] 05/05/18 Vital Signs Temperature 98.9 F 05/05/18 14:00 Pulse Rate 75 05/05/18 14:00 Respiratory Rate 18 05/05/18 14:53 Blood Pressure 115/63 05/05/18 14:00 O2 Sat by Pulse Oximetry (%) 100 05/05/18 11:50 NAD on Vent unresponsive/sedated ET tube in place MMM, No JVD RRR, No M/R No LE edema CBC, BMP 05/05/18 08:50 05/05/18 08:50 Current Medications Chlorhexidine Gluconate (Hibiclens For Decolonization -) 1 applic TP HS EDER Heparin Sodium (Porcine) (Heparin -) 5,000 unit SQ TID EDER Last Admin: 05/05/18 10:57 Dose: 5,000 unit Sodium Chloride (Normal Saline -) 1,000 mls @ 42 mls/hr IV ASDIR EDER Last Admin: 05/05/18 01:35 Dose: 42 mls/hr Propofol (Diprivan -) 1,000,000 mcg in 100 mls @ 2.041 mls/hr IVPB TITR EDER; Protocol Last Titration: 05/05/18 07:00 Dose: 0 mcg/kg/min, 0 mls/hr Phenylephrine HCl 20,000 mcg/ (Sodium Chloride) 250 mls @ 75 mls/hr IVPB ASDIR EDER; Protocol Last Titration: 05/05/18 10:41 Dose: 25 mcg/min, 18.75 mls/hr Cefazolin Sodium 1 gm/ (Dextrose) 50 mls @ 100 mls/hr IVPB Q8H-IV EDER Last Admin: 05/05/18 13:24 Dose: 100 mls/hr Labetalol HCl (Normodyne Injection -) 10 mg IVPUSH Q4H PRN PRN Reason: HYPERTENSION Mupirocin (Bactroban Ointment (For Decolonization) -) 1 applic NS BID EDER Stop: 05/10/18 09:59 Last Admin: 05/05/18 10:59 Dose: 1 applic 62 year old gentleman with recent diagnosis of Mantle Cell lymphoma who presented with slurred speech and found to have ICH with subsequent evacuation by neurosuergery with polyuria. #ICH #Mantle Cell lymphoma #Polyuria r/o Central DI #Anemia At this time pt is polyuric w/o any overt hypernatremia Repeat BMP, serum and urine OSM pending if remains polyuric would change IVF to 1/2 NS at 2/3 urine output if serum OSM is elevated, Na > 145 and pt is a low urine OSM can assume central DI pt may benifit from SC or IV DDAVP 1 mcg SC Q12h or 2 mcg IV Q12h Trend BMP Q8h Prognosis is guarded Thank you will follow Wade Matta DO
[2018-05-05 15:43] LABS: INR 1.27 (0.82-1.09); PROTHROMBIN TIME (PATIENT) 14.3 SEC (9.7-13.0)
[2018-05-05 15:46] LABS: ACTIVATED PTT 29.7 SECONDS (26.9-34.4)
[2018-05-05 15:59] LABS: CHLORIDE 114 mmol/L (98-107); POTASSIUM 4.7 mmol/L (3.5-5.1); SODIUM 147 mmol/L (136-145)
[2018-05-05] MEDS: ALBUMIN HUMAN 5% 250 ML IV SOLUTION IVPB ONE ×2 (16:00→16:01)
[2018-05-05 16:05] LABS: ANION GAP 6 (8-16); BLOOD UREA NITROGEN 15 mg/dL (7-18); CALCIUM 8.6 mg/dL (8.5-10.1); CO2 27 mmol/L (21-32); CREATININE 0.7 mg/dL (0.7-1.3); GLUCOSE,RANDOM 81 mg/dL (74-106)
--- NOTE | 2018-05-05 16:11 | CONSULT ---
Consult Consult Specialty:: Hematology/Oncology - History of Present Illness History of Present Illness: is a 62 year old male, who is being presently evaluated by outside oncologist for leucocytosis and splenomegaly. He was all well until last night. He was supposed to see his oncologist today. Was admitted overnight for ICH and underwent surgery by NS. Hematology consulted for abnormal CBC. Pt seen and examined. Pt presently intubated sedated in the ICU. Family at bedside. - History Source History Provided By: Medical Record - Alcohol/Substance Use Hx Alcohol Use: No - Smoking History Smoking history: Never smoked Have you smoked in the past 12 months: No Home Medications - Allergies Allergies/Adverse Reactions: Allergies Allergy/AdvReac Type Severity Reaction Status Date / Time No Known Allergies Allergy Verified 05/05/18 02:09 - Home Medications Home Medications: Ambulatory Orders NK [No Known Home Medication] 05/05/18 Physical Exam Vital Signs: Vital Signs Temperature 98.8 F 05/05/18 15:00 Pulse Rate 76 05/05/18 15:33 Respiratory Rate 18 05/05/18 15:00 Blood Pressure 130/69 05/05/18 15:33 O2 Sat by Pulse Oximetry (%) 100 05/05/18 11:50 Constitutional: Yes: Other (intubated sedated) HENT: Yes: Other (drain present) Cardiovascular: Yes: Tachycardia Respiratory: Yes: Mechanically Ventilated Gastrointestinal: Yes: Soft, Splenomegaly Edema: Yes Edema: LLE: 1+, RLE: 1+ Labs: CBC, BMP 05/05/18 08:50 Imaging - Results Cat Scan: Report Reviewed Assessment/Plan Extreme Leucoyctosis/ICH: d/w Outside Oncologist (Vik),d/w Our in-house pathologist, mature lymphs with some immature cells read, a stat flow cytometry for send out done this am Working diagnosis: Mantle cell Lymphoma possible in leukemic phase stat coags were checked. Coags wnl [facility] arranged (spoke to [facility] co-ordinator and also legal director - replacement fluid 5% albumin, recommended was 1L, ordered) PRBC x2 for now Platelets X1 ( prior to Line for apheresis), then 2SDU---re-check CBC CBC [id number] to maintain atleast 90-100K(d/wNSG).Platelet transfusion as indicated. consideration for transfer to tertiary center- [facility]--d/w ICU/NSG here, deemed if needed that its needed to be transferred, ICU team here to call [facility] to discuss case. Critically ill. discussed this case with attending physicians here ICU/NSG/hospitalist [facility]/blood bank/pharmacy, blood bank to ensure enough products broderick platelets. d/w all the family members at bedside
[2018-05-05] MEDS ORDERED: ALBUMIN HUMAN 25% 12.5 GM/50 ML VIAL IVPB SCH (16:15)
[2018-05-05] MEDS ORDERED: MANNITOL 25% 12.5 GM/50 ML VIAL IVPB ONE (16:37)
[2018-05-05] MEDS ORDERED: levETIRAcetam 500 MG/5 ML INJECTION VIAL IVPB ONE (16:37)
--- NOTE | 2018-05-05 16:41 | PN ---
Progress Note, Physician Chief Complaint: spoken with transfer center at [facility] . I spoke with DR Conklin ICU neuro and sighn out the pt to him and they accepted the patient after they spoke with neurosurgery Dr.Chaudhry Deacon Enriquez requested Mannitol 70 g and 1 gm of Keppra upon transfer plus the CD images . pt will be accepted under Dr Coker . Change the vent setting per Dr Conklin request to RR 22 , Fio2 100, PEEP 7 - Current Medication List Current Medications: Active Medications Chlorhexidine Gluconate (Hibiclens For Decolonization -) 1 applic TP HS EDER Heparin Sodium (Porcine) (Heparin -) 5,000 unit SQ TID EDER Last Admin: 05/05/18 15:41 Dose: 5,000 unit Sodium Chloride (Normal Saline -) 1,000 mls @ 42 mls/hr IV ASDIR EDER Last Admin: 05/05/18 01:35 Dose: 42 mls/hr Propofol (Diprivan -) 1,000,000 mcg in 100 mls @ 2.041 mls/hr IVPB TITR EDER; Protocol Last Titration: 05/05/18 07:00 Dose: 0 mcg/kg/min, 0 mls/hr Phenylephrine HCl 20,000 mcg/ (Sodium Chloride) 250 mls @ 75 mls/hr IVPB ASDIR EDER; Protocol Last Admin: 05/05/18 15:33 Dose: 25 mcg/min, 18.75 mls/hr Cefazolin Sodium 1 gm/ (Dextrose) 50 mls @ 100 mls/hr IVPB Q8H-IV EDER Last Admin: 05/05/18 13:24 Dose: 100 mls/hr Labetalol HCl (Normodyne Injection -) 10 mg IVPUSH Q4H PRN PRN Reason: HYPERTENSION Levetiracetam (Keppra Injection -) 1,000 mg IVPB ONCE ONE Stop: 05/05/18 16:38 Mannitol (Osmitrol -) 70 gm IVPB ONCE ONE Stop: 05/05/18 16:38 Mupirocin (Bactroban Ointment (For Decolonization) -) 1 applic NS BID EDER Stop: 05/10/18 09:59 Last Admin: 05/05/18 10:59 Dose: 1 applic - Objective Vital Signs: Vital Signs Temperature 98.7 F 05/05/18 15:55 Pulse Rate 74 05/05/18 15:55 Respiratory Rate 18 05/05/18 16:04 Blood Pressure 123/79 05/05/18 15:55 O2 Sat by Pulse Oximetry (%) 100 05/05/18 11:50 Labs: CBC, BMP 05/05/18 08:50 05/05/18 14:20 INR, PTT INR 1.27 (0.82-1.09) H 05/05/18 14:20 Fibrinogen 249.0 mg/dL (238-498) 05/05/18 14:20
[2018-05-05] MEDS ORDERED: MANNITOL IVPB ONE (17:00)
[2018-05-05] MEDS ORDERED: DEXTROSE 5% IVPB ONE (17:00)
[2018-05-05] MEDS ORDERED: WATER IVPB ONE (17:00)
[2018-05-05 20:29] VITALS: BP 123/81; PULSE 76; TEMP 98.6
[2018-05-05] MEDS ORDERED: CHLORHEXIDINE GLUCONATE 4% CLEANSER FOR DECOLONIZATION TP SCH (22:00)
--- NOTE | 2018-05-06 19:22 | PATH ---
Surgical Pathology Report Patient Name: CYDNEY HERNANDEZ [facility]. Rec. 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 Specimen(s) Received PERIPHERAL BLOOD Clinical History Lymphocytosis Final Diagnosis COMPREHENSIVE FLOW PANEL performed and interpreted at [facility] [place], [place] ([id number]) shows the following: INTERPRETATION: Clonal CD5+ B-cell population, 97% of total events, is detected, see comment. COMMENT: The differential diagnosis includes atypical CLL (aCLL) and mantle cell lymphoma. Correlation with FISH studies for BCL-1 rearrangements is essential. See [facility] report ([id number]) for additional details. Electronically Signed Lois Mayo M.D. 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 Three copies of NF1 (17q11.2) are present. No evidence of trisomy 12. No evidence of deletion 13q14.2 is present. No evidence of deletion of VIDA (11q22) is present. No CCND1/IGF t(11;14) translocation is detected. COMMENTS: Deletions of p53, detected by FISH, are present in 7% to 20% of patients and represent the strongest predictor of survival in B-cell CLL. It is associated with refractory and/or advanced disease, resistance to treatment, and shorter survival. 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 Four multiplex probe stain procedures were performed. One single probe stain procedure was performed. See [facility] report ([id number]) for additional details. Lois Mayo M.D.
== END 2018-05-05 20:55 | disposition short-term general hospital (02) | DRG 24 ==
LOC: JER 01:17 → JERBED 03:44 → JICU 07:26
PROVIDERS: ADMIT Internal Medicine; ATTEND Nurse Practitioner Acute Care
PROC: 03HY32Z Insertion of Monitoring Device into Upper Artery, Percutaneous Approach (ICD-10-PCS; 2018-05-05)
PROC: 0DH67UZ Insertion of Feeding Device into Stomach, Via Natural or Artificial Opening (ICD-10-PCS; 2018-05-05)
PROC: 30233R1 Transfusion of Nonautologous Platelets into Peripheral Vein, Percutaneous Approach (ICD-10-PCS; 2018-05-05)
PROC: 30233N1 Transfusion of Nonautologous Red Blood Cells into Peripheral Vein, Percutaneous Approach (ICD-10-PCS; 2018-05-05)
PROC: 009630Z Drainage of Cerebral Ventricle with Drainage Device, Percutaneous Approach (ICD-10-PCS; principal; 2018-05-05 03:50)
DX: I62.9 Nontraumatic intracranial hemorrhage, unspecified (principal); D68.9 Coagulation defect, unspecified; E23.2 Diabetes insipidus; G93.1 Anoxic brain damage, not elsewhere classified; C83.10 Mantle cell lymphoma, unspecified site; R57.9 Shock, unspecified; E87.0 Hyperosmolality and hypernatremia; C94.80 Other specified leukemias not having achieved remission; G91.9 Hydrocephalus, unspecified; D64.9 Anemia, unspecified; I95.9 Hypotension, unspecified; D72.829 Elevated white blood cell count, unspecified; R35.8 Other polyuria; D69.6 Thrombocytopenia, unspecified; R47.81 Slurred speech; R16.1 Splenomegaly, not elsewhere classified
CPT/HCPCS: 36415; 36430; 36600; 70450-TC; 70496-TC; 70498-TC; 71045-TC-FY; 80048; 80053; 82436; 82465; 82550; 82570; 82803; 83605; 83615; 83718; 83721; 83735; 83930; 83935; 84100; 84133; 84300; 84478; 84484; 84550; 85025; 85379; 85384; 85610; 85730; 86850; 86900; 86901; 86922; 88300-TC; 93005; 93010; 94002; 94760; 99284-25; J1644; J7030; P9034; P9038; P9047; P9058